=== PATIENT | female | born 1955 | race Caucasian/White ===

== ENCOUNTER → 2021-07-09 | Outpatient (CLI) | payer MEDICARE ==
--- NOTE | 2021-07-09 11:12 | Diagnostic Imaging Report ---
INDICATION: Left shoulder pain. TIME OF EXAM: 10:06 a.m. TECHNIQUE: Three views of the left shoulder were obtained. FINDINGS: Glenohumeral and acromioclavicular alignment are normal. Acromiohumeral space is normal. No fracture or dislocation is identified. IMPRESSION: No acute abnormality is detected. Dictated by: Dictated on workstation # [id number]
== END ==
LOC: ORTHO 09:48
PROVIDERS: ATTEND Orthopaedic Surgery
DX: M25.512 Pain in left shoulder (principal)
CPT/HCPCS: 20610; 73030; G0463

== ENCOUNTER → 2021-07-23 | Outpatient (CLI) | payer MEDICARE | LOC: ORTHO 10:30 | PROVIDERS: ATTEND Orthopaedic Surgery | DX: M75.52 Bursitis of left shoulder (principal); M47.812 Spondylosis without myelopathy or radiculopathy, cervical region; R20.2 Paresthesia of skin | CPT/HCPCS: 99213 ==

== ENCOUNTER → 2023-02-23 | Outpatient (CLI) | payer MEDICARE, OTHER ==
--- NOTE | 2023-02-23 12:45 | Diagnostic Imaging Report ---
INDICATION: PAIN OF LT KNEE AND HIP JOINT COMPARISON: None. FINDINGS: 2 views of the right hip were obtained and show no fractures, dislocations, or other acute bony abnormalities. Joint spaces are well maintained throughout. The soft tissues appear unremarkable. No unexpected radiopaque foreign bodies are identified. IMPRESSION: Unremarkable radiographic exam of the right hip. Dictated by: Dictated on workstation # [id number]
--- NOTE | 2023-02-23 12:49 | Diagnostic Imaging Report ---
INDICATION: PAIN OF LT KNEE JOINT COMPARISON: None. FINDINGS: Multiple radiographic views of the right knee joint demonstrate no acute fracture or dislocation. No focal osseous lesions are seen. No significant joint effusion is seen. The surrounding soft tissue structures are unremarkable. There are no radiopaque foreign bodies. IMPRESSION: 1. No acute fractures or dislocations of the right knee joint. Dictated by: Dictated on workstation # [id number]
== END ==
LOC: ORTHO 10:58
PROVIDERS: ATTEND Orthopaedic Surgery
DX: M25.561 Pain in right knee (principal); M25.551 Pain in right hip; M25.562 Pain in left knee; M25.552 Pain in left hip
CPT/HCPCS: 20610; 73502; 73564; G0463

== ENCOUNTER → 2023-03-15 | Outpatient (CLI) | payer MEDICARE | LOC: ORTHO 12:41 | PROVIDERS: ATTEND Orthopaedic Surgery | DX: M17.11 Unilateral primary osteoarthritis, right knee (principal) | CPT/HCPCS: 20610 ==

== ENCOUNTER → 2023-04-28 | Outpatient (CLI) | payer MEDICARE | LOC: ORTHO 11:07 | PROVIDERS: ATTEND Orthopaedic Surgery | DX: M17.12 Unilateral primary osteoarthritis, left knee (principal) | CPT/HCPCS: 99213 ==